=== PATIENT | male | born 1945 | race Caucasian/White ===

== ENCOUNTER 2017-11-28 06:00 | Day surgery (SDC) | payer OTHER ==
[~2017-11-28 06:00] MED LIST: COZAAR100 MG PO; NORVASC10 MG PO; TAMS0.4C PO
== END 2017-11-28 16:00 | disposition home or self-care (01) ==
LOC: CIR.AMB 06:00
DX: K40.90 Unilateral inguinal hernia, without obstruction or gangrene, not specified as recurrent (principal)